=== PATIENT | male | born 1945 | race African-American/Black ===

== ENCOUNTER 2024-01-10 04:57 | Emergency (ER) | payer MEDICAID, MEDICARE, OTHER ==
[~2024-01-10] VITALS: Ht 330.2 cm; Wt 78.0 kg
[~2024-01-10 04:57] MED LIST: BENAZEPRIL; TRAZADONE
[2024-01-10 05:24] VITALS: O2SAT 98
[2024-01-10 06:10] LABS: BASOPHILS % 0.2 % (0.0-2.0); EOSINOPHILS % 0.9 % (0.0-5.0); HEMATOCRIT. 40.8 % (42.0-52.0); HEMOGLOBIN. 13.2 g/dL (14.0-18.0); MEAN CORPUSCULAR HEMOGLOBIN 30.5 pg (28.0-32.0); MEAN CORPUSCULAR HGB CONC 32.4 g/dL (31.0-37.0); MEAN CORPUSCULAR VOLUME 94.3 fL (80.0-94.0); MEAN PLATELET VOLUME 8.2 fl (7.4-10.4); MONOCYTES % 4.8 % (2.0-8.0); NEUTROPHILS % 77.1 % (40.0-76.0); PLATELET 152 x1000/uL (130-400); RED BLOOD CELL COUNT 4.33 mill/uL (4.7-6.1); RED CELL DISTRIBUTION WIDTH 12.7 % (11.6-14.6); WHITE BLOOD COUNT 9.3 x1000/uL (4.5-11.0)
[2024-01-10 06:26] LABS: CHLORIDE 109 mEq/L (98-107); SODIUM 142 mEq/L (136-145)
[2024-01-10 06:27] LABS: CALCIUM 9.9 mg/dL (8.7-10.4); CARBON DIOXIDE 26 mEq/L (21-32); INR 1.1; PARTIAL THROMBOPLASTIN TIME 25.1 sec (23.4-31.0); PROTHROMBIN TIME 12.4 sec (9.6-11.0)
[2024-01-10 06:32] LABS: CREATININE 1.1 mg/dL (0.6-1.3); GLUCOSE 119 mg/dL (70-105); UREA NITROGEN BLOOD 12 mg/dL (9-23)
[2024-01-10 06:33] LABS: TROPONIN I HIGH SENSITIVITY 5 ng/L (3.0-53)
[2024-01-10] MEDS: MORPHINE SULFATE 2 MG/ML INJ (NOT FOR IM USE) IV ONE (06:34)
[2024-01-10 06:46] LABS: ETHANOL BLOOD < 10 mg/dL (<10)
[2024-01-10 08:30] LABS: TROPONIN I HIGH SENSITIVITY 5 ng/L (3.0-53)
[2024-01-10] MEDS: KETOROLAC 30MG/ML VIAL IV ONE (10:08)
[2024-01-10] MEDS: ACETAMINOPHEN 325MG TABLET PO ONE (10:23)
[2024-01-10 10:30] LABS: CLARITY URINE CLEAR (CLEAR); COLOR URINE YELLOW (YELLOW); GLUCOSE URINE NEGATIVE (NEGATIVE); KETONES URINE TRACE (NEGATIVE); LEUKOCYTE ESTERASE URINE NEGATIVE (NEGATIVE); NITRITE URINE NEGATIVE (NEGATIVE); OCCULT BLOOD URINE NEGATIVE (NEGATIVE); PROTEIN URINE TRACE (NEGATIVE); SPECIFIC GRAVITY URINE 1.017 (1.005-1.030)
[2024-01-10 10:43] LABS: SQUAMOUS EPITHELIAL CELL URINE RARE /lpf (RARE/1+)
[2024-01-10 10:44] LABS: BACTERIA URINE TRACE; WBC URINE 0-2 /hpf (0-2)
[2024-01-10] MEDS: METHOCARBAMOL 750MG TABLET PO SCH (10:44)
[2024-01-10 10:45] LABS: RBC URINE 0-2 /hpf (0-2)
[2024-01-10 11:26] LABS: *AMPHETAMINES SCREEN URINE NEGATIVE (NEGATIVE); *BARBITURATES SCREEN URINE NEGATIVE (NEGATIVE); *BENZODIAZEPINES SCREEN URINE NEGATIVE (NEGATIVE); *COCAINE SCREEN URINE NEGATIVE (NEGATIVE); METHADONE URINE SCREEN NEGATIVE (NEGATIVE)
[2024-01-10 11:27] LABS: CANNABINOID URINE SCREEN NEGATIVE (NEGATIVE); ECSTASY MDMA SCREEN URINE CONF.TEST INDICATED (NEGATIVE); OPIATES URINE SCREEN PRESUMPTIVE POSITIVE (NEGATIVE); PHENCYCLIDINE URINE SCREEN NEGATIVE (NEGATIVE)
[2024-01-10 11:55] VITALS: BP 159/75; PULSE 85; RESP 17; TEMP 98.3
== END 2024-01-10 12:36 | disposition home or self-care (01) ==
LOC: ER 04:57
DX: R55 Syncope and collapse (principal); M25.511 Pain in right shoulder; M25.512 Pain in left shoulder; J45.909 Unspecified asthma, uncomplicated; I10 Essential (primary) hypertension
CPT/HCPCS: 80305; 80048; 81003; 80320; 83880; 83690; 85025; 85610; 85730; 84484; 36415; 71045; 73030; 73060; 73110; 70450; 70486; 72125; 93005; 96374; 96375; 99285; J1885; J2270; G0480